=== PATIENT | male | born 1955 | race Caucasian/White ===

== ENCOUNTER 2017-08-19 17:23 | Inpatient (IN) | payer MEDICARE, MEDICAID ==
[2017-08-19 18:20] LABS: #Eosinphils 0.5 thou/uL (0.0-0.7); #Lymphocytes 3.3 thou/uL (1.20-3.40); #Monocytes 0.8 thou/uL (0.11-0.59); #Neutrophils 3.9 thou/uL (1.40-6.50); %Basophils 0.4 % (0.0-1.0); %Eosinophils 6.1 % (0.0-10.0); %Lymphocytes 38.5 % (21.0-51.0); %Monocytes 9.5 % (0.0-10.0); %Neutrophils 45.5 % (42.0-75.0); Hemoglobin 14.7 g/dL (14.0-18.0); Mean Corpuscular HGB CONC 34.3 g/dL (32.0-36.0); Mean Corpuscular Hemoglobin 32.9 pg (27.0-31.0); Mean Corpuscular Volume 95.8 fl (80.0-94.0); Mean Platelet Volume 7.3 fL (7.4-10.4); Platelet Count 285 thou/uL (130-400); RBC Distribution Width 12.5 % (11.5-14.5); Red Blood Cell (RBC) Count 4.49 mill/uL (4.70-6.10); White Blood Cell (WBC) Count 8.6 thou/uL (4.8-10.8)
[2017-08-19 18:46] LABS: ALT (SGPT) 8 U/L (8-55); AST (SGOT) 19 U/L (5-34); Albumin 4.1 g/dL (3.4-4.8); Alkaline Phosphatase 74 U/L (40-150); Anion Gap 14 mmol/L (10-20); BUN (Urea Nitrogen) 16 mg/dL (8.4-25.7); Bilirubin, Total 0.3 mg/dL (0.2-1.2); CK (CPK) 132 U/L (30-200); Calc. Creatinine Clearance 0 mL/min (70-130); Calcium 9.3 mg/dL (7.8-10.44); Carbon Dioxide 23 mmol/L (23-31); Chloride 100 mmol/L (98-107); Estimated GFR-MDRD 84; Globulin 2.9 g/dL (2.4-3.5); Glucose 91 mg/dL (80-115); Lipase 17 U/L (8-78); Magnesium 2.3 mg/dL (1.6-2.6); Potassium 4.7 mmol/L (3.5-5.1); Sodium 132 mmol/L (136-145)
[2017-08-19 18:47] LABS: CKMB 1.4 ng/mL (0-6.6); Troponin I Less than 0.010 ng/mL (< 0.028)
[2017-08-19 19:24] LABS: Bilirubin Negative (Negative); Blood, Urine Negative (Negative); Clarity CLEAR (Clear); Glucose, Urine (Dipstick) Negative (Negative); Leukocyte Negative (Negative); Nitrite Negative (Negative); Protein, Urine (Dipstick) Negative (Neg-Trace); Specific Gravity, Urine 1.012 (1.002-1.036); pH, Urine 6.5 (5.0-9.0)
--- NOTE | 2017-08-19 21:06 | RAD ---
PORTABLE CHEST: History: Cough. Comparison: 07-25-16 FINDINGS: Heart size and mediastinum are within normal limits. The lungs are clear of infiltrate. Post-operativ e changes of the cervical spine are seen. IMPRESSION: No active intrathoracic disease. POS: [facility]
[2017-08-19] MEDS ORDERED: Water For Inject, Bacteriostat 30 ML ONE (21:09)
[2017-08-19] MEDS ORDERED: Nitroglycerin 2% Ointment 1 INCH/1 GM Packet ONE (21:09)
[2017-08-19] MEDS ORDERED: methylPREDNISolone Sod Succ/PF 125 MG/2 ML VIAL ONE (21:09)
[2017-08-19] MEDS ORDERED: Azithromycin 250 MG TAB ONE (21:09)
[2017-08-19] MEDS ORDERED: Enoxaparin Sodium 80 MG/0.8 ML SYRINGE ONE (21:10)
[2017-08-19 22:00] LABS: Medtox Reader # READER 1
[2017-08-19 22:01] LABS: Amphetamine Not Detected (NotDetected); Barbiturates Screen Not Detected (NotDetected); Benzodiazepine Screen Not Detected (NotDetected); Cocaine Metabolite Screen Detected (NotDetected); Medtox Control Line Valid? VALID (VALID); Methadone Not Detected (NotDetected); Methamphetamine Not Detected (NotDetected); Opiate Screen Not Detected (NotDetected); Oxycodone Screen Not Detected (NotDetected); Phencyclidine (PCP) Not Detected (NotDetected); THC/Cannabinoid Screen Not Detected (NotDetected); Tricyclic Screen Not Detected (NotDetected)
[2017-08-19 22:09] LABS: Troponin I Less than 0.010 ng/mL (< 0.028)
[2017-08-20] MEDS: Sodium Chloride 0.9% 1,000 ML IV SCH ×3 (00:18→18:13)
[2017-08-20] MEDS: Nitroglycerin 2% Ointment 1 INCH/1 GM Packet TOP SCH ×2 (00:22→06:30)
[2017-08-20 01:00] VITALS: BMI 23.0
[2017-08-20] MEDS ORDERED: diphenhydrAMINE 50 MG CAP PO PRN (01:01)
[2017-08-20] MEDS ORDERED: Ondansetron ODT 4 MG TAB PO PRN (01:01)
[2017-08-20] MEDS ORDERED: hydrALAZINE 20 MG/ML VIAL SLOW IVP PRN (01:01)
[2017-08-20] MEDS ORDERED: Milk Of Magnesia 30 ML UDCUP PO PRN (01:01)
[2017-08-20] MEDS ORDERED: Bisacodyl 10 MG SUPP PR PRN (01:01)
[2017-08-20] MEDS ORDERED: Acetaminophen 650 MG Suppository PR PRN (01:01)
[2017-08-20] MEDS ORDERED: Acetaminophen 325 MG TAB PO PRN (01:01)
[2017-08-20] MEDS ORDERED: Famotidine 20 MG TAB PO PRN (01:01)
[2017-08-20] MEDS ORDERED: Docusate 100 MG CAP PO PRN (01:01)
[2017-08-20 01:03] LABS: Troponin I 0.011 ng/mL (< 0.028)
[2017-08-20] MEDS: Morphine 5 MG/ML SYRINGE SLOW IVP PRN ×2 (02:43→06:32)
[2017-08-20 05:54] LABS: #Lymphocytes 0.9 thou/uL (1.20-3.40); #Neutrophils 4.8 thou/uL (1.40-6.50); %Basophils 0.6 % (0.0-1.0); %Eosinophils 0.4 % (0.0-10.0); %Lymphocytes 15.6 % (21.0-51.0); %Monocytes 0.7 % (0.0-10.0); %Neutrophils 82.7 % (42.0-75.0); Hemoglobin 13.6 g/dL (14.0-18.0); Mean Corpuscular HGB CONC 34.3 g/dL (32.0-36.0); Mean Corpuscular Hemoglobin 32.9 pg (27.0-31.0); Mean Corpuscular Volume 96.1 fl (80.0-94.0); Mean Platelet Volume 7.6 fL (7.4-10.4); Platelet Count 245 thou/uL (130-400); RBC Distribution Width 12.5 % (11.5-14.5); Red Blood Cell (RBC) Count 4.13 mill/uL (4.70-6.10); White Blood Cell (WBC) Count 5.8 thou/uL (4.8-10.8)
[2017-08-20 06:03] LABS: Anion Gap 15 mmol/L (10-20); BUN (Urea Nitrogen) 17 mg/dL (8.4-25.7); Calc. Creatinine Clearance 63 mL/min (70-130); Calcium 9.3 mg/dL (7.8-10.44); Carbon Dioxide 22 mmol/L (23-31); Cardiac Risk 4.3 (Less than 4.5); Chloride 102 mmol/L (98-107); Cholesterol 224 mg/dl (< 200 Desired); Estimated GFR-MDRD 72; Glucose 159 mg/dL (80-115); HDL Cholesterol 52 mg/dL (>60 Neg Risk); LDL Cholesterol, Calculated 153 mg/dL; Potassium 4.7 mmol/L (3.5-5.1); Sodium 134 mmol/L (136-145); Triglycerides 93 mg/dL (Less than 150)
[2017-08-20] MEDS: Levothyroxine Sodium 88 MCG TAB PO SCH (06:29)
[2017-08-20] MEDS ORDERED: Non-Formulary Item 1 EACH (Budesonide-Formoterol [Symbicort 160-4.5] 2 PUFF) INH SCH (06:30)
--- NOTE | 2017-08-20 07:19 | HP-2 ---
DATE OF ADMISSION: 08/19/2017 CODE STATUS: FULL. PRIMARY CARE PHYSICIAN: In [place], [place]. RESIDENT: Dr. Mireya Celeste ATTENDING: Dr. Sundar Tang HISTORIAN: Patient. CHIEF COMPLAINT: Chest pain. HISTORY OF PRESENT ILLNESS: A 62-year-old male with past medical history of questionable CAD and a h istory of a catheterization in 10/2015 without significant stenosis found or stents placed and a hist ory of cocaine abuse in the past, presents with left and right-sided chest pain. He described it as stabbing. It occurs daily 4-5 times lasting 3-4 minutes, occurs at rest, sometimes during sleep and wakes him up. It goes away on its own. He says that it has been occurring more often over this past month than it was in the past. He endorses some shortness of breath with the chest pain and diaphor esis as well as some nausea. Denies vomiting. The pain does radiate, it has been going on for great er than 1 month. He received 324 mg aspirin in the ambulance on the way over here and some nitro. PAST MEDICAL HISTORY: 1. COPD. 2. Hypertension. 3. Hyperlipidemia. 4. Hypothyroidism. 5. Medication noncompliance. PAST SURGICAL HISTORY: 1. He was cathed in 10/2015 that did not show significant stenosis and ejection fraction of 55-60%. 2. Appendectomy. 3. Jaw surgery. 4. Right elbow surgery. 5. Neck surgery. ALLERGIES: No known drug allergies. MEDICATIONS: 1. Aspirin 81 mg daily. 2. Statin 40 mg daily. 3. Symbicort. 4. Lisinopril 2.5 daily. 5. Synthroid 88 mcg daily. 6. Norvasc 5 mg daily. FAMILY HISTORY: Noncontributory. SOCIAL HISTORY: Smokes 2-3 packs per day, has a 60-90 pack year history. Alcohol, drinks a 12 pack a day if he has the money, otherwise, last drink 16 ounces this morning. He thinks he has drank abo ut 5 quarts this week. Drugs: History of cocaine abuse. Denies current cocaine use or any drug use currently. REVIEW OF SYSTEMS: Denies fevers or chills. EYES: Denies vision changes. RESPIRATORY: Denies cough. Endorses shortness of breath. GI: He endorses nausea. Denies vomiting. Endorses diaphoresis. SKIN: Denies rash, lesions. MUSCULOSKELETAL: Denies pain. NEUROLOGIC: Denies weakness, numbness. PSYCHIATRIC: Denies anxiety, depression. PHYSICAL EXAMINATION: VITAL SIGNS: Blood pressure 166/85, pulse of 79, respiratory rate 19, T-max 98.1, pulse ox 99% on ro om air, current weight 68 kilograms. GENERAL: Alert and oriented x4, no apparent distress. Appropriately interactive. EYES: PERRLA, EOMI. ENT: Nasal mucosa within normal limits as well as oropharynx. NECK: Supple. No lymphadenopathy. CARDIOVASCULAR: Regular rate and rhythm. No murmur, rub or gallop. RESPIRATORY: Normal effort. Bilateral wheezing, decreased breath sounds bilaterally. ABDOMEN: Soft, nontender to palpation. EXTREMITIES: No clubbing, cyanosis or edema. MUSCULOSKELETAL: Structure within normal limits. NEUROLOGIC: No focal deficits. LABORATORY DATA: CBC 8.6, 14.7, 43. 285. CMP: 132, 4.7, 100, 23, 16, 0.91. GFR 84. AST, ALT, alkaline phosphatase 13, 8, 34. Calcium, total protein, albumin, 9.3, 7.4, 0.1. D-dimer negative. Magnesium 2.3. CK 132, CK-MB 1.4, troponin less than 0.01. Total bilirubin 0.3. Lipase 17. BNP 57. EKG: Normal sinus rhythm. Chest x-ray hyperextended flattened diaphragm, no focal infiltrate. ASSESSMENT AND PLAN: This is a 62-year-old male with a questionable coronary artery disease history who presents with left-sided chest pain, admitted for unstable angina. 1. Unstable angina. Chest pain is associated with shortness of breath, nausea, diaphoresis, and is left-sided and is increasing over time per day over the past couple months, it has not improved with nitro and due to his history of catheterization in 2016 and poor medication compliance over the past year, he was admitted for unstable angina to inpatient tele. He was given Lovenox in the ER. It was started b.i.d. for the next day. He had a JONELLE score of 2 and a heart score of 4. We will consult Cardiology in the morning, restart him on a high intensity statin last night. He was also started li sinopril and metoprolol in the morning. He was started on lisinopril and provided with nitro p.r.n. and morphine. I will trend his troponins and repeat a troponin, EKG if chest pain returns. We will order a UDS and TSH. 2. Chronic obstructive pulmonary disease, it is chronic. Without evidence of acute exacerbation. H gaston is wheezing on exam. He was given 125 mg of prednisone in the ER. We will restart his Symbicort and provide DuoNeb q.4 hours p.r.n. 3. Hypertension. He was started on lisinopril 5 mg p.o. daily. 4. Hyperlipidemia. We ordered a lipid panel and will continue atorvastatin 80 mg daily. 5. Alcohol abuse, ASE protocol and p.r.n. Ativan. 6. Tobacco abuse. Nicotine patch and counseled on tobacco cessation. 7. Drug abuse, UDS. 8. Hyponatremia likely due to beer potomania. We will continue to monitor. 9. Medication noncompliance. We will funeral prearrangement counselor on the importance of taking his medications. 10. Hypothyroidism. We will recheck a TSH. DISPOSITION/LENGTH OF HOSPITAL STAY: 1-2 days. Symptomatic medications will to be provided. History and physical exam and management discussed with Dr. Tang.
[2017-08-20] MEDS ORDERED: Enoxaparin Sodium 80 MG/0.8 ML SYRINGE SC SCH (09:00)
[2017-08-20] MEDS ORDERED: Aspirin 325 MG TAB PO SCH (09:00)
[2017-08-20] MEDS: Aspirin 81 mg Enteric Coated Tablet PO SCH (09:57)
[2017-08-20] MEDS: Lisinopril 2.5 MG TAB PO SCH (09:59)
[2017-08-20] MEDS ORDERED: Levothyroxine Sodium 88 MCG TAB PO SCH (10:00)
[2017-08-20] MEDS: Nicotine 21 MG PATCH TD SCH (10:09)
[2017-08-20] MEDS: Enoxaparin Sodium 60 MG/0.6 ML SYRINGE SC SCH ×2 (10:09→21:20)
--- NOTE | 2017-08-20 10:57 | CON ---
DATE OF CONSULTATION: 08/20/2017 HISTORY OF PRESENT: The patient is a 62-year-old gentleman, who presents for evaluation of chest discomfort. The patient has previously been diagnosed with coronary artery disease, and underwent a cardiac catheterization in 2004. He was apparently found to have a mild disease in the right coronary artery. Patient was advised to quit smoking. He was seen again in 2015, he underwent a repeat cardiac catheterization, which revealed no significant coronary artery disease. The patient once again was highly advised to discontinue smoking and to be compliant with his medications. The patient states several months ago, he was taken off all his cardiac medications including aspirin. He states for the past month, that he has had substernal chest pain that lasts 4-5 minutes. It occurs with and without exertion. He denies having any present chest discomfort. PAST MEDICAL HISTORY: 1. Coronary artery disease. 2. Chronic obstructive pulmonary disease. 3. Hypertension. 4. Hypothyroidism. 5. Hyperlipidemia. PAST SURGICAL HISTORY: Appendectomy, neck surgery, and elbow surgery. ALLERGIES: None. SOCIAL HISTORY: The patient continues to abuse tobacco and drink excessively. He denies having any recent use of illicit drugs. MEDICATIONS ON ADMISSION: None. FAMILY HISTORY: Positive family history of heart disease. His mother had coronary bypass graft surgery. ALLERGIES: None. REVIEW OF SYSTEMS: Ten-point system noticeable for neck discomfort. PHYSICAL EXAMINATION: GENERAL: Thin gentleman in no acute distress with a blood pressure of 124/55. NECK: Showed no jugular venous distention. LUNGS: Bilateral wheezes. HEART: Regular rate and rhythm, normal S1 and S2, no murmurs. ABDOMEN: Nondistended. EXTREMITIES: Showed trace edema. SKIN: Warm and dry. NEUROLOGIC: Nonfocal. VASCULAR: Radial pulses are 2+. LABORATORY DATA: White blood cell count 5.8, hemoglobin 13.6, hematocrit 39.7, platelets 245. Sodium 134, potassium 4.7, chloride 102, bicarbonate 15, BUN 17 , creatinine 1.0, glucose 159. His troponin was less than 0.01. TSH was 5.0. BNP was 57. EKG revealed normal sinus rhythm, normal ECG. IMPRESSION: 1. Unstable angina. 2. History of coronary artery disease. 3. Chronic obstructive pulmonary disease. 4. Tobacco abuse. 5. Hypertension. 6. Dyslipidemia. This gentleman presents with chest pain suggestive of angina. From a cardiac standpoint, he needs to be restarted on his cardiac medications. Agree with treating him with Lovenox, aspirin, and lipid lowering medication. We will add Imdur to his medical regimen. We will follow this patient with you through his hospitalization. MIGUEL
[2017-08-20] MEDS: Mometasone/Formoterol 120 PUFF INHALER INH SCH ×2 (10:59→19:16)
[2017-08-20] MEDS: Methocarbamol 500 MG TAB PO PRN ×2 (12:15→21:21)
--- NOTE | 2017-08-20 12:47 | PDOC.EVN ---
Attending Addendum - Attending Addendum I personally evaluated the patient and discussed the management with Dr. Tre Celeste. I agree with the History, Examination, Assessment and Plan documented in her H& P with any addition or exceptions noted below. Patient with history of CAD, medication noncompliance, and cocaine abuse presenting with several months of daily chest pain that lasts about 3-4 minutes , radiates to L and R chest, and associated with diaphoresis, nausea, and shortness of breath. This pain occurs at rest and with exertion. He has been off his medications for near 1 year. He had last heart cath in 2016 that was performed here. His exam is overall normal, and his labs are overall normal. Troponins negative x3. Due to his history and complaint, he is being treated for unstable angina. Cardiology has been consulted and he has been started on therapeutic lovenox. Will restart his home medications, and give Nitro/Morphine PRN for pain. There is likely a high degree of his complaint that is related to medication noncompliance, continued tobacco abuse, and cocaine abuse, though he denies current use. Continue telemetry monitoring and further recs per cardiology.
[2017-08-20] MEDS ORDERED: Atorvastatin Calcium 40 MG TAB PO SCH ×2 (21:00)
[2017-08-21] MEDS: Sodium Chloride 0.9% 1,000 ML IV SCH (05:08)
[2017-08-21] MEDS: Levothyroxine Sodium 88 MCG TAB PO SCH (05:10)
[2017-08-21 06:13] VITALS: TEMP 97.9
[2017-08-21 06:30] LABS: Anion Gap 12 mmol/L (10-20); BUN (Urea Nitrogen) 12 mg/dL (8.4-25.7); Calc. Creatinine Clearance 75 mL/min (70-130); Calcium 8.3 mg/dL (7.8-10.44); Carbon Dioxide 23 mmol/L (23-31); Chloride 105 mmol/L (98-107); Estimated GFR-MDRD 89; Glucose 85 mg/dL (80-115); Potassium 3.2 mmol/L (3.5-5.1); Sodium 137 mmol/L (136-145)
[2017-08-21] MEDS: Mometasone/Formoterol 120 PUFF INHALER INH SCH (07:05)
--- NOTE | 2017-08-21 09:13 | PDOC.FM ---
- Subjective Subjective: No significant overnight events. Patient appears to be doing fairly well this morning, although he is agitated. He just came back inside from smoking. He endorses shortness of breath associated with exertion. - Objective MAR Reviewed: Yes Vital Signs & Weight: Vital Signs (12 hours) Temp Pulse Resp BP Pulse Ox 08/21/17 07:55 95 08/21/17 05:00 97.9 F 71 20 108/65 92 L Weight Weight 60.917 kg I&O: 08/20/17 08/21/17 08/22/17 06:59 06:59 06:59 Intake Total 600 4527 Output Total 300 1565 Balance 300 2962 Result Diagrams: 08/20/17 05:37 08/21/17 04:54 EKG Reviewed by me: Yes Radiology Reviewed by me: Yes <Leticia Ca - Last Filed: 08/21/17 09:11> - Objective Vital Signs & Weight: Vital Signs (12 hours) Temp Pulse Resp BP Pulse Ox 08/21/17 09:28 68 08/21/17 09:26 97.9 F 68 16 134/65 94 L 08/21/17 07:55 95 08/21/17 05:00 97.9 F 71 20 108/65 92 L Weight Weight 60.917 kg I&O: 08/20/17 08/21/17 08/22/17 06:59 06:59 06:59 Intake Total 600 4527 Output Total 300 1565 Balance 300 2962 Result Diagrams: 08/20/17 05:37 08/21/17 04:54 <Sundar Tang - Last Filed: 08/21/17 12:18> Phys Exam - Physical Examination Constitutional: NAD HEENT: moist MMs Neck: supple Wheezing diffusely througout Cardiovascular: RRR, no significant murmur Gastrointestinal: soft, non-tender Musculoskeletal: no edema Neurological: non-focal, moves all 4 limbs Psychiatric: A&O x 3 Deviation from normal: Agitated Skin: cap refill <2 seconds <Leticia Ca - Last Filed: 08/21/17 09:11> Dx/Plan (1) Unstable angina Status: Acute (2) COPD (chronic obstructive pulmonary disease) Status: Chronic (3) Tobacco abuse Code(s): Z72.0 - TOBACCO USE Status: Chronic (4) Medical non-compliance Code(s): Z91.19 - PATIENT'S NONCOMPLIANCE W OTH MEDICAL TREATMENT AND REGIMEN Status: Chronic (5) Cocaine abuse Code(s): F14.10 - COCAINE ABUSE, UNCOMPLICATED Status: Chronic (6) HLD (hyperlipidemia) Code(s): E78.5 - HYPERLIPIDEMIA, UNSPECIFIED Status: Chronic (7) HTN (hypertension) Code(s): I10 - ESSENTIAL (PRIMARY) HYPERTENSION Status: Chronic QualifierTitle: Hypertension type: essential hypertension Qualified Code( s): I10 - Essential (primary) hypertension (8) Hypothyroid Code(s): E03.9 - HYPOTHYROIDISM, UNSPECIFIED Status: Chronic - Plan Plan: 1. Unstable angina - Trop neg x3 - EKG NSR - No events on telemetry - Cardiology consulted; appreciate recs - Recommend optimization of medications; patient has been off medications for > 1 year - Will continue ASA, high dose statin - Consider non-specific BB as patient has history of cocaine abuse - Cocaine abuse and smoking likely contributing to CP - Imdur ER added to medication regimen per cardiology COPD - Wheezing on exam - Duoneb treatments PRN - Smoking cessation counseling - Add inhalers for treatment of COPD HTN - Imdur ER added to medication regimen per cardiology HLD - Continue high dose statin Tobacco abuse - Cessation counseling Hypothyroidism - TSH 5, Free T4 nml - Continue levothyroxine 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 <Leticia Ca - Last Filed: 08/21/17 09:11> Attending Addendum - Attending Addendum I personally evaluated the patient and discussed the management with Dr. Ca. I agree with the History, Examination, Assessment and Plan documented above with any addition or exceptions noted below. Patient has been restarted on his CAD medications. His primary pain complaint today is neck pain. Continues to smoke despite counselling. Will discuss with cardiology, but if medically optimized, should be stable for discharge. No evidence of ACS and no EKG changes. <Sundar Tang - Last Filed: 08/21/17 12:18>
[2017-08-21 09:27] VITALS: BP 134/65
[2017-08-21] MEDS: Enoxaparin Sodium 60 MG/0.6 ML SYRINGE SC SCH (09:28)
[2017-08-21] MEDS: Lisinopril 2.5 MG TAB PO SCH (09:28)
[2017-08-21] MEDS: Aspirin 81 mg Enteric Coated Tablet PO SCH (09:28)
[2017-08-21] MEDS: Nicotine 21 MG PATCH TD SCH (09:29)
[2017-08-21] MEDS ORDERED: Potassium Chloride 20 MEQ TAB PO SCH (09:30)
--- NOTE | 2017-08-22 14:37 | DIS-2 ---
DATE OF ADMISSION: 08/19/2017. DATE OF DISCHARGE: 08/21/2017. RESIDENT: Leticia Ca DO ADMITTING ATTENDING: Farhana Singletary MD DISCHARGE ATTENDING: Sundar Tang MD CONSULTATION: Cardiology, Dr. Ferris. PROCEDURE: Chest x-ray showed no acute intrathoracic disease. PRIMARY DIAGNOSES: 1. Unstable angina. 2. History of coronary artery disease. 3. Chronic obstructive pulmonary disease. SECONDARY DIAGNOSES: 1. Tobacco abuse. 2. Hypertension. 3. Dyslipidemia. 4. Hypothyroidism. DISCHARGE MEDICATIONS: 1. Aspirin 81 mg oral daily. 2. Atorvastatin calcium 80 mg oral at bedtime. 3. Isosorbide mononitrate 30 mg oral daily. 4. Lisinopril 2.5 mg oral daily. 5. Dulera 200 mcg/5 mcg inhaler, 2-puff inhalation twice daily. DISCONTINUED MEDICATIONS: None. HISTORY OF PRESENT ILLNESS/HOSPITAL COURSE: This is a 62-year-old male with past medical history of questionable coronary artery disease and history of catheterization in 10/2015 without significant stenosis found or stents placed, and a history of cocaine abuse in the past that presented with left and right- sided chest pain. He described it as stabbing and occurred daily for 4-5 days lasting 3-4 minutes, occurring at rest and sometimes during sleep, whereupon it woke him up. It does go away on its own. He says it has been occurring more often over this past month than it was in the past. He endorses shortness of breath with chest pain and diaphoresis as well as some nausea. He does deny vomiting and the pain does not radiate. It has been going on for greater than a month. He received 324 mg of aspirin in the ambulance on the way over here and some nitroglycerin. The patient remained completely stable during the course of his hospital stay. He left on several occasions to go outside and smoke, where he was likely smoking 5 packs a day. Cardiology was consulted and they recommended maximal medical management as the patient has been off his medications in over a year. Aspirin as well as lipid medication was recommended. Due to the fact that the patient has a history of cocaine abuse and was positive for cocaine on UDS, it is not necessarily recommended that a cardiac specific beta waqas be started at this time. Additionally, the patient was started on isosorbide mononitrate per Cardiology to optimize medical management of his presumed coronary artery disease. After Dr. 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 Velazquez. Dr. Velazquez tried to see the patient on several occasions; however, he was always outside smoking cigarettes. It was strongly advised that the patient quit smoking to best optimize his chances of prolonging life. The patient also adamantly denied cocaine abuse despite the fact that he was positive on his UDS as previously stated. Dr. Velazquez does not think that this is an acute coronary syndrome and he had a recent catheterization in 2016, which did not show any degree of severe stenosis. Thus, he was comfortable discharging the patient with the recommendations to stop with the cocaine use and the smoking for truly symptomatic treatment of his chest pain. The patient's troponins were trended and they were all less than 0.010. His potassium did fall to 3.2 at one point and was replaced, but otherwise his electrolytes have been stable and his kidney function has been within normal limits. CBC did not reveal any acute abnormalities. Lipid panel was performed. Triglycerides were 93, cholesterol 224, LDL 153, HDL 52, and he did have a heart disease risk ratio of 4.3. TSH was performed as the patient has history of hypothyroidism and it was noted to be 5.0 with a free T4 in the normal range of 0.87. The patient remained stable throughout the course of his hospital stay as previously stated. He did not have any acute problems, intermittently complained of chest pain, though he was up and smoking very frequently during the course of his stay here. Again, it was recommended that he stop smoking to prolong his life. DISPOSITION: Stable. DISCHARGE INSTRUCTIONS: 1. Location: Home. 2. Diet: Heart healthy. 3. Activity: Cardiopulmonary limitations. 4. Followup: The patient is to follow up with [facility] within 7 days of discharge to ensure resolution/improvement in his symptoms. This was discussed with the patient and he stated that he was in understanding of the necessity for followup, particularly in regards to medication management. MIGUEL
--- NOTE | 2017-08-24 16:58 | EKG ---
Test Reason : CP Blood Pressure : / mmHG Vent. Rate : 085 BPM Atrial Rate : 085 BPM P-R Int : 136 ms QRS Dur : 078 ms QT Int : 354 ms P-R-T Axes : 061 051 064 degrees QTc Int : 421 ms Normal sinus rhythm Normal ECG Confirmed by DULCE MARIA TELLEZ ([id number]), editor index ROBERT BARFIELD ([id number]) on 08/24/2017 4:58:24 PM Referred By: DR TELLEZ Confirmed By:DULCE MARIA TELLEZ
== END 2017-08-21 16:19 | disposition home or self-care (01) | DRG 311 ==
LOC: ERS 17:23 → 2NO 23:37
PROVIDERS: ADMIT Family Medicine; ATTEND Family Medicine
DX: I20.0 Unstable angina (principal); E87.1 Hypo-osmolality and hyponatremia; E03.9 Hypothyroidism, unspecified; E78.5 Hyperlipidemia, unspecified; I10 Essential (primary) hypertension; J44.9 Chronic obstructive pulmonary disease, unspecified; Z79.82 Long term (current) use of aspirin; F17.210 Nicotine dependence, cigarettes, uncomplicated; F10.10 Alcohol abuse, uncomplicated; Z91.14 Patient's other noncompliance with medication regimen; E87.6 Hypokalemia; F14.10 Cocaine abuse, uncomplicated
CPT/HCPCS: 36415; 71045; 80048; 80053; 80061; 80306; 81003; 82553; 83690; 83735; 83880; 84439; 84443; 84484; 85025; 85379; 93005; 94640; 94760; 96372; 96374; 96375; 99406; J2270; J1650; J2930; J7620

== ENCOUNTER 2018-01-14 07:44 | Outpatient (CLI) | payer MEDICARE, MEDICAID ==
--- NOTE | 2018-01-14 09:38 | RAD ---
RIGHT INDEX FINGER 3 VIEWS: Date: 01/14/18 HISTORY: 62-year-old male with history of foreign body right index finger, distal interphalangeal joint. FINDINGS: No evidence for foreign body. Degenerative changes. No fracture or dislocation. Minimal soft tissue s welling. IMPRESSION: Minimal soft tissue swelling distal index finger without fracture or dislocation. No abnormal opaque foreign body. Degenerative changes. POS: [facility]
== END 2018-01-14 07:45 | disposition home or self-care (01) ==
LOC: RAD-FRANK 07:44
PROVIDERS: ATTEND Nurse Practitioner Family
DX: M79.5 Residual foreign body in soft tissue (principal); M18.11 Unilateral primary osteoarthritis of first carpometacarpal joint, right hand

== ENCOUNTER 2018-06-05 17:47 | Inpatient (IN) | payer MEDICARE, MEDICAID ==
[~2018-06-05 17:47] MED LIST: ISOVUE-370 76%-LOCM 1 ML ONE
[2018-06-05] MEDS ORDERED: Metoclopramide HCl 10 MG/2 ML VIAL ONE (18:42)
[2018-06-05] MEDS ORDERED: Methocarbamol 500 MG TAB PO SCH (18:45)
[2018-06-05 19:06] LABS: #Basophils 0.1 thou/uL (0.0-0.2); #Eosinphils 0.7 thou/uL (0.0-0.7); #Lymphocytes 2.1 thou/uL (1.20-3.40); #Monocytes 0.8 thou/uL (0.11-0.59); #Neutrophils 4.1 thou/uL (1.40-6.50); %Basophils 0.7 % (0.0-1.0); %Eosinophils 9.6 % (0.0-10.0); %Lymphocytes 27.3 % (21.0-51.0); %Monocytes 10.3 % (0.0-10.0); %Neutrophils 52.2 % (42.0-75.0); Mean Corpuscular HGB CONC 34.2 g/dL (32.0-36.0); Mean Corpuscular Volume 96.4 fL (78.0-98.0); Mean Platelet Volume 6.3 fL (7.4-10.4); Platelet Count 290 thou/uL (130-400); RBC Distribution Width 12.1 % (11.5-14.5); Red Blood Cell (RBC) Count 4.23 mill/uL (4.70-6.10); White Blood Cell (WBC) Count 7.8 thou/uL (4.8-10.8)
--- NOTE | 2018-06-05 19:06 | RAD ---
CHEST ONE VIEW: 06/05/18 INDICATION: Shortness of breath and cough. COMPARISON: Prior exam dated 08/19/17. FINDINGS: Chronic lung changes are stable. Heart size is within normal limits. There is ACDF involving the lowe r cervical spine. No acute osseous abnormality is evident. IMPRESSION: No acute cardiopulmonary abnormality. POS: [facility]
[2018-06-05 19:13] LABS: INR-International Normal Ratio 0.9; PTT 30.4 SEC (22.9-36.1); Prothrombin Time 12.4 SEC (12.0-14.7)
[2018-06-05 19:29] LABS: ALT (SGPT) 10 U/L (8-55); AST (SGOT) 23 U/L (5-34); Albumin 4.1 g/dL (3.4-4.8); Alkaline Phosphatase 82 U/L (40-150); Anion Gap 14 mmol/L (10-20); BUN (Urea Nitrogen) 10 mg/dL (8.4-25.7); Bilirubin, Total 0.5 mg/dL (0.2-1.2); CK (CPK) 141 U/L (30-200); CKMB 1.8 ng/mL (0-6.6); Calc. Creatinine Clearance 0 mL/min (70-130); Calcium 9.5 mg/dL (7.8-10.44); Carbon Dioxide 27 mmol/L (23-31); Chloride 83 mmol/L (98-107); Estimated GFR-MDRD 84; Globulin 2.8 g/dL (2.4-3.5); Glucose 101 mg/dL (80-115); Lipase 21 U/L (8-78); Potassium 4.1 mmol/L (3.5-5.1); Protein, Total 6.9 g/dL (5.8-8.1); Sodium 120 mmol/L (136-145); Troponin I Less than 0.010 ng/mL (< 0.028)
[2018-06-05 20:18] LABS: Bilirubin Negative (Negative); Blood, Urine Negative (Negative); Clarity CLEAR (Clear); Glucose, Urine (Dipstick) Negative (Negative); Leukocyte Trace (Negative); Nitrite Negative (Negative); Protein, Urine (Dipstick) Negative (Neg-Trace); Specific Gravity, Urine 1.012 (1.002-1.036)
[2018-06-05 20:20] LABS: Bacteria/HPF None Seen HPF (None Seen); Hyaline Casts/LPF 0-3 HYALINE CAST LPF (0-3 Hyaline); Pathc Cast-AUWi Flag 0.14 (0-2.49); RBC/HPF 0-3 HPF (0-3); Squamous Epithelial None Seen HPF (0-3); WBC/HPF None Seen HPF (0-3)
--- NOTE | 2018-06-05 20:48 | CT ---
HISTORY: Fall Saturday with head and neck pain as well as upper chest pain. Noncontrast enhanced CT images of the brain obtained. Brain and bone windows obtained. CT images of the brain demonstrate no definite evidence of calvarial fractures. No evidence of intrac ranial masses, hemorrhages, or strokes seen. Ventricles are of normal size. IMPRESSION: Normal CT brain. POS: [facility]
--- NOTE | 2018-06-05 21:16 | CT ---
CT CERVICAL SPINE: 06/05/18 HISTORY: Trauma with fall. Neck pain. Axial images are obtained with coronal and sagittal reconstructions. Comparison made to a previous CT from 11/07/09. The patient has had an interval ACDF with fusion of the C5, C6, and C7 vertebrae. Hardware is in good position. There ahs been interval development of C3-4 disc desiccation and end plate sclerotic changes which we re not present on the 2010 exam. This is compatible with C3-4 developed changes of spondylosis. No evidence of acute cervical spine fractures seen. IMPRESSION: 1. C5, C6 and C7 ACDF changes. 2. There is interval development of degenerating disc at the C3-4 level. This has developed sinc e the previous comparison CT in 2010. No other acute cervical spine abnormality seen. Some bilateral carotid bulb and proximal ICA calcification seen. POS: [facility]
--- NOTE | 2018-06-05 21:20 | CT ---
CONTRAST ENHANCED CT IMAGES OF THE CHEST AND ABDOMEN AND PELVIS: 06/05/18 HISTORY: Patient with fall five days ago with neck pain in head and upper chest. Contrast enhanced CT images of the chest, abdomen and pelvis is obtained with sagittal and coronal re constructions. CT images demonstrate no definite evidence of lung parenchymal lesions. No evidence of mediastinal or axillary lymphadenopathy seen. Coronary artery calcifications seen. No definite evidence of rib fractures seen. CT abdomen and pelvis demonstrate the liver and spleen to be unremarkable. The gallbladder and pancre as are unremarkable. Adrenal glands are unremarkable. Small bilateral renal cortical cysts seen. The small bowel is not significantly distended. The colon is not obstructed. Evaluation of the small bowel and colon is difficult without benefit of oral contrast. Descending and sigmoid colonic diverticulosis is present. No definite evidence of pelvic fracture seen. No significant evidence of lumbar or thoracic fractures seen. Degenerative changes with disc space height loss and end plate sclerotic changes seen at the T 3-4 disc space. IMPRESSION: No evidence of acute thoracic, abdominal or pelvic pathology seen. POS: [facility]
[2018-06-05 21:27] LABS: Osmolality, Urine 202 mOsm/kg (300-900)
[2018-06-05 21:42] LABS: Sodium, Urine Less than 20 mmol/L (Not Available)
--- NOTE | 2018-06-05 21:43 | PDOC.FPRHP ---
- History of Present Illness Chief Complaint: SOB History of Present Illness: This is a 62 yo male with a pmh of Hypothyroidism, HTN, HLD, COPD, CAD, CVA who presents to the ED with a cc of SOB. He states that he started having symptoms at 0400 on 06/05. He reports a sore throat, pain with deep breathing, and nausea. He also states that he has been having some chest and neck pain since Saturday when he tripped in his back yard. He reports a history of cervical spine surgery. Pt. also mentions struggling with bladder and bowel incontinence. When pressed further, pt. is unable to specifically describe his issues but reports it has been going on for a year or two. Pt. reports not taking any medications. He states he got himself off of them because he would forget and did not see the value in taking them. ED Course: Duoneb x1, reglan 10mg, robaxin 500mg, NS 1L - Allergies/Adverse Reactions Allergies Allergy/AdvReac Type Severity Reaction Status Date / Time No Known Allergies Allergy Verified 08/20/17 00:53 - Home Medications Medication Instructions Recorded Confirmed Type Aspirin [Ecotrin Low Strength] 81 mg PO DAILY #30 tab 08/21/17 Rx Atorvastatin Calcium [Lipitor] 80 mg PO HS #30 tab 08/21/17 Rx Isosorbide Mononitrate [Imdur ER] 30 mg PO DAILY #30 tab 08/21/17 Rx Lisinopril [Zestril] 2.5 mg PO DAILY #30 tab 08/21/17 Rx Mometasone/Formoterol 200/5 2 puff INH BID-RT #1 aer 08/21/17 Rx [Dulera 200 Mcg/5 Mcg Inhaler] - History PMHx: Thyroid problem, CAD, MIx2, COPD, CVA, HLD, HTN PSHx: Appendectomy, cervical spine surgery FHx: noncontributory Social: Smokes rolled cigarettes, drinks at least 4 beers a day, denies drug use - Review of Systems General: denies: fever/chills, weight/appetite/sleep changes Eyes: denies: eye pain, vision changes ENT: reports: nasal congestion, other (sore throat) Respiratory: reports: shortness of breath, exercise intolerance. denies: cough , congestion Cardiovascular: reports: chest pain. denies: palpitation, edema Gastrointestinal: reports: nausea. denies: vomiting, diarrhea, constipation Genitourinary: reports: incontinence. denies: dysuria Skin: denies: rashes, lesions Musculoskeletal: reports: pain (to neck, back, arms), tenderness, stiffness Neurological: denies: numbness, syncope, seizure, weakness Psychological: denies: anxiety, depression - Vital signs BP: 135/69 HR: 101 RR: 18 Tmax: 98.4 Pox: 96% on ra Wt: 54.43 kg - Physical Exam Constitutional: NAD, awake, alert and oriented, well developed HEENT: normocephalic and atraumatic, PERRLA, EOMI Neck: supple, trachea midline Chest: no-tender to palpation, no lesions Heart: RRR, normal S1/S2, no murmurs/rubs/gallops, pulses present Lungs: no respiratory distress, good air movement, other (Pt. does have wheezing in lung bases.) Abdomen: soft, non-tender, bowel sounds present, no masses/distention Musculoskeletal: ROM grossly normal Neurological: no focal deficit, CN II-XII intact Skin: no rash/lesions, good turgor, capillary refill <2 seconds Heme/Lymphatic: no unusual bruising or bleeding Psychiatric: normal mood and affect, good judgment and insight, intact recent and remote memory FMR H&P: Results - Labs Result Diagrams: 06/06/18 04:41 06/06/18 04:41 Lab results: WBC 7.8 thou/uL (4.8-10.8) 06/05/18 18:52 Hgb 14.0 g/dL (14.0-18.0) 06/05/18 18:52 Hct 40.8 % (42.0-52.0) L 06/05/18 18:52 MCV 96.4 fL (78.0-98.0) 06/05/18 18:52 Plt Count 290 thou/uL (130-400) 06/05/18 18:52 Neutrophils % 52.2 % (42.0-75.0) 06/05/18 18:52 Sodium 120 mmol/L (136-145) L 06/05/18 18:52 Potassium 4.1 mmol/L (3.5-5.1) 11/15/18 18:52 Chloride 83 mmol/L (98-107) L 06/05/18 18:52 Carbon Dioxide 27 mmol/L (23-31) 06/05/18 18:52 BUN 10 mg/dL (8.4-25.7) 06/05/18 18:52 Creatinine 0.91 mg/dL (0.6-1.3) 06/05/18 18:52 Glucose 101 mg/dL (80-115) 06/05/18 18:52 Lactic Acid 3.2 mmol/L (0.5-2.2) H 06/05/18 18:52 Calcium 9.5 mg/dL (7.8-10.44) 06/05/18 18:52 Total Bilirubin 0.5 mg/dL (0.2-1.2) 06/05/18 18:52 AST 23 U/L (5-34) 06/05/18 18:52 ALT 10 U/L (8-55) 06/05/18 18:52 Alkaline Phosphatase 82 U/L (40-150) 06/05/18 18:52 Creatine Kinase 141 U/L (30-200) 06/05/18 18:52 CK-MB (CK-2) 1.8 ng/mL (0-6.6) 06/05/18 18:52 Serum Total Protein 6.9 g/dL (5.8-8.1) 06/05/18 18:52 Albumin 4.1 g/dL (3.4-4.8) 06/05/18 18:52 Lipase 21 U/L (8-78) 06/05/18 18:52 Urine Ketones Negative mg/dL (Negative) 06/05/18 20:00 Urine Blood Negative (Negative) 06/05/18 20:00 Urine Nitrite Negative (Negative) 06/05/18 20:00 Ur Leukocyte Esterase Trace (Negative) H 06/05/18 20:00 Urine RBC 0-3 HPF (0-3) 06/05/18 20:00 Urine WBC None Seen HPF (0-3) 06/05/18 20:00 Ur Squamous Epith Cells None Seen HPF (0-3) 06/05/18 20:00 Urine Bacteria None Seen HPF (None Seen) 06/05/18 20:00 - Radiology Interpretation Chest x-ray Status: report reviewed by me (No acute cardiopulmonary abnormalities) CT scan - head Status: report reviewed by me (CT brain, normal CT brain. CT neck, C5, C6, C7 ACDF changes. DJD at C3-4,) CT scan - abdomen Status: report reviewed by me (No acute abdominal pathology) CT scan - pelvis Status: report reviewed by me (No acute pathology) CT scan - chest Status: report reviewed by me (No acute thoracic changes) FMR H&P: A/P - Problem List (1) Hyponatremia Current Visit: Yes Status: Acute Code(s): E87.1 - HYPO-OSMOLALITY AND HYPONATREMIA (2) Hypochloremia Current Visit: Yes Status: Acute Code(s): E87.8 - OTH DISORDERS OF ELECTROLYTE AND FLUID BALANCE, NEC (3) Alcohol abuse Current Visit: No Status: Chronic Code(s): F10.10 - ALCOHOL ABUSE, UNCOMPLICATED (4) COPD (chronic obstructive pulmonary disease) Current Visit: No Status: Chronic (5) HLD (hyperlipidemia) Current Visit: No Status: Chronic Code(s): E78.5 - HYPERLIPIDEMIA, UNSPECIFIED (6) HTN (hypertension) Current Visit: No Status: Chronic Code(s): I10 - ESSENTIAL (PRIMARY) HYPERTENSION Qualifiers: Hypertension type: essential hypertension Qualified Code(s): I10 - Essential (primary) hypertension (7) Tobacco abuse Current Visit: No Status: Chronic Code(s): Z72.0 - TOBACCO USE (8) Cocaine abuse Current Visit: No Status: Chronic Code(s): F14.10 - COCAINE ABUSE, UNCOMPLICATED - Plan This is a 62 yo male with a pmh of Hypothyroidism, HTN, HLD, COPD, CAD, CVA Hyponatremia -Admit to tele inpatient -Fluid restriction 1500ml -Dr. Tyson was consulted from ED, appreciate his recommendations -Monitor electrolytes Hypochloremia -As above Alcohol abuse -ASE protocol -Encourage cessation COPD -Not an acute exacerbation on this admission -Duonebs PRN on for wheezing and SOB CAD -Will encourage him to begin medically appropriate medications for management of his condition. -Statin, aspirin, ACEi, BB HLD -Begin statin HTN -Begin ACEi and BB Tobacco abuse -Encourage cessation, provides pharmaceutical support if desired Cocaine abuse -Encourage cessation Risky social behavior such as drug abuse and tattoos -RPR, Hep B and C, HIV Code: Full Prophylaxis: lovenox Family: none at bedside Disposition: home in 2-3 days FMR H&P: Upper Level - Pertinent history 62 yo male here for feeling sick today. Patient is poor historian and is evasive/tangential in his answers. Patient reports falling at home a few days ago and now has pain and soreness of the neck. When asked what brought him into the ER tonight, he begins talking about things seemingly unrelated. He has smoked rolled cigarettes since he was in the 2nd grade and he doesnt keep up with how many a day. Also drinks beer, 4 this morning, but is unable to describe how many he normally drinks a day. Doesnt take medications because he forgets to take them half the time anyways. Hx of MA, HTN, hypothyroid, HLD, COPD. Medical records show a cardiac cath in 2016 which was negative. - Pertinent findings GEN: NAD, AOx3 CARD: RRR, no m/g/r PULM: mild expiratory wheezing in both lung bases ABD: Right sided tenderness EXT: no cyanosis or edema 131/68 HR: 87 Sat: 98% on RA RR: 17 All imaging reviewed and negative Na: 120 - Plan Date/Time: 06/05/182142 #hyponatremia likely 2/2 beer drinkers potomaina -fluid restrict and recheck in the AM -he has a history of hyponatremia, but this is lower than normal, lowest ever was 119 #EtOH abuse -ASE protocol -plasma alcohol lab pending - #history of positive cocaine -check UDS #hypokalemia -replenish and recheck in AM #COPD -stable at this time -continue with duonebs as needed #medication noncompliance -discuss the importance of taking medications I, Ari Hudson DO, have evaluated this patient and agree with findings/plan as outlined by 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 Pertinent changes/additions are listed here. Attending Addendum - Attending Addendum Date/Time: 06/06/18 0018 I personally evaluated the patient and discussed the management with Dr. Landa on 06/05/2018 I agree with the History, Examination, Assessment and Plan documented above with any addition or exceptions noted below- 62 yo male with h/o chronic neck pain, h/o CVA x 3, HTN, HLD, COPD who presents c/o SOB and after a fall 5 days ago. Patient states that he has been a little more SOB since the cold front started. Has not been using his inhalers. Also reports a fall 5 days ago - tripped over a concrete flower bed border. Does not know how long he was on the ground but eventually was able to get up by himself. Denies any fever/chills. PMH/PSH/Meds/ All reviewed and agree with resident's documentation. T98.6 P76 BP 116/66 RR12 98%RA Exam repeated by me and agree with resident's findings. Labs: WBC=7.8, H/H= 14/40.8, Uhy=502, XI=125, K=4.1, Cl=83, CO2=27, BUN/Cr=10/0.91, XA=952, AST/ALT= 23/10, trop I<0.010, Urine Na=<20, Urine osm= 202, Ca=9.5, Cortisol=7.6 A/P: 1) Hypochloremic/hyponatremia- Patient asymptomatic. Patient with h/o hyponatremia in past, attributed to beer potamania. Will avoid free water. Encourage alcohol cessation. 2) COPD- continue duonebs, 3) S/p fall- xrays and CT scans negative.
[2018-06-05] MEDS ORDERED: traMADol HCl 50 MG TAB PO PRN (22:36)
[2018-06-05] MEDS ORDERED: Ibuprofen 800 MG TAB PO SCH ×2 (22:36→22:45)
[2018-06-05 23:14] LABS: Lactic Acid 0.9 mmol/L (0.5-2.2)
[2018-06-05 23:23] LABS: Medtox Reader # READER 1; Phencyclidine (PCP) Not Detected (NotDetected); THC/Cannabinoid Screen Not Detected (NotDetected)
[2018-06-05 23:24] LABS: Amphetamine Not Detected (NotDetected); Barbiturates Screen Not Detected (NotDetected); Benzodiazepine Screen Not Detected (NotDetected); Cocaine Metabolite Screen Detected (NotDetected); Medtox Control Line Valid? VALID (VALID); Methadone Not Detected (NotDetected); Methamphetamine Not Detected (NotDetected); Opiate Screen Not Detected (NotDetected); Oxycodone Screen Not Detected (NotDetected); Tricyclic Screen Not Detected (NotDetected)
[2018-06-06] MEDS: Acetaminophen 500 MG TAB ONE ×2 (00:45→00:46)
[2018-06-06] MEDS: Acetaminophen 500 MG TAB PO SCH ×4 (00:47→17:29)
[2018-06-06 05:28] LABS: #Eosinphils 0.8 thou/uL (0.0-0.7); #Lymphocytes 2.1 thou/uL (1.20-3.40); #Neutrophils 2.9 thou/uL (1.40-6.50); %Basophils 0.6 % (0.0-1.0); %Eosinophils 11.8 % (0.0-10.0); %Lymphocytes 30.6 % (21.0-51.0); %Monocytes 14.2 % (0.0-10.0); %Neutrophils 42.8 % (42.0-75.0); Hemoglobin 12.9 g/dL (14.0-18.0); Mean Corpuscular HGB CONC 34.3 g/dL (32.0-36.0); Mean Corpuscular Hemoglobin 33.9 pg (27.0-31.0); Mean Corpuscular Volume 98.8 fL (78.0-98.0); Mean Platelet Volume 6.6 fL (7.4-10.4); Platelet Count 263 thou/uL (130-400); RBC Distribution Width 12.1 % (11.5-14.5); White Blood Cell (WBC) Count 6.8 thou/uL (4.8-10.8)
[2018-06-06 05:34] LABS: Anion Gap 10 mmol/L (10-20); BUN (Urea Nitrogen) 11 mg/dL (8.4-25.7); Calc. Creatinine Clearance 75 mL/min (70-130); Calcium 8.9 mg/dL (7.8-10.44); Carbon Dioxide 24 mmol/L (23-31); Chloride 94 mmol/L (98-107); Estimated GFR-MDRD Greater than 90; Glucose 84 mg/dL (80-115); Potassium 4.1 mmol/L (3.5-5.1); Sodium 124 mmol/L (136-145)
[2018-06-06] MEDS: Ibuprofen 800 MG TAB PO SCH ×3 (05:48→21:38)
[2018-06-06 05:52] LABS: HBSAg Index 0.23 S/CO (0-0.99); Hep B Surf Ag Non-Reactive S/CO (NonReactive); Hep C IgG Ab Non-Reactive (NonReactive); Hep C Index 0.07 S/CO (0-0.79); Syphilis Antibody Nonreactive (Nonreactive); Syphilis Antibody Index 0.04 S/CO (<1.00 Non-Reactive)
[2018-06-06] MEDS ORDERED: Sodium Chloride 0.9% 1,000 ML IV SCH ×2 (07:00→08:45)
[2018-06-06] MEDS ORDERED: Diazepam 5 MG TAB PO PRN (07:24)
[2018-06-06] MEDS ORDERED: Thiamine HCl 200 MG/2 ML VIAL IM SCH (07:30)
[2018-06-06] MEDS ORDERED: Diazepam 5 MG TAB PO SCH (07:30)
--- NOTE | 2018-06-06 07:45 | CON ---
DATE OF CONSULTATION: 06/06/2018 SERVICE: Renal Medicine. HISTORY OF PRESENT ILLNESS: Mr. Bell is a 62-year-old white male with known multiple medical prob lems, admitted for generalized malaise. According to the patient, he has not been feeling well. He has decreased p.o. intake. He was incidentally noted to have hyponatremia. Please note, the patient has history of moderate to heavy alcohol intake. I was consulted for his hyponatremia. Serum sodium was already slightly improved from 120-124 with f ree water restriction. I reviewed his urine chemistries and he has a low urine sodium suggesting the re may be a component of hypovolemic hyponatremia. REVIEW OF SYSTEMS: No chest pain, no shortness of breath, decreased appetite, decreased energy level . No nausea, no vomiting, no diarrhea, no abdominal pain. Occasional headache, occasional joint tatum ns. No sore throat, no fever or chills, no new skin rash. CURRENT MEDICATIONS: DuoNeb q.4 hours p.r.n., Ecotrin 81 mg bedtime, Lipitor 40 mg at bedtime, Loven ox 40 mg subcu every day, Motrin 800 mg t.i.d., Zestril 2.5 mg once a day, metoprolol succinate 25 mg once a day, tramadol p.r.n. PAST MEDICAL HISTORY: 1. Degenerative joint disease. 2. Hypertension. 3. Hyperlipidemia. 4. COPD. PAST SURGICAL HISTORY: 1. The patient is status post cervical neck surgery. 2. Status post appendectomy. 3. Status post right elbow surgery. 4. He is status post colonoscopy. SOCIAL HISTORY: Patient originally from [place], currently lives in his car with his pet. He has 3 children. He is a yuen. Education: 9th grade. Smoked for 1-2 packs for the last several y ears. Alcohol, moderate intake - usually beer. No IV drug use. ALLERGIES: None. TRAUMA: None. IMMUNIZATIONS: Declining. HOSPITALIZATIONS: Please see past medical history. FAMILY HISTORY: No family history of end-stage renal disease. PHYSICAL EXAMINATION: VITAL SIGNS: Blood pressure is 130/71, heart rate 65, respiratory rate 19, temperature 97.9, pulse o x 96%. GENERAL: Patient is awake, alert, comfortable, not in overt distress. SKIN: Adequate turgor. HEENT: He has pinkish conjunctivae, anicteric sclerae. NECK: No neck mass, no carotid bruits, no JVD. CHEST: No deformities. LUNGS: Clear breath sounds, no wheezing, no crackles. HEART: Normal sinus rhythm. No murmur, no gallops or rubs. ABDOMEN: Globular, soft, nontender, no masses. EXTREMITIES: No edema, no deformities. NEUROLOGIC: Moving all extremities. No tremors, no asterixis, no ataxia. LABORATORY DATA: Of 06/06/2018, white count 6.8, hemoglobin 12.9. Sodium 124, potassium 4.1, chlori de 94, carbon dioxide 24, BUN 11, creatinine 0.81, glucose 84, calcium 8.9. Lactic acid 0.9. On , serum sodium 124. Urinalysis showed specific gravity of 1.012, benign. Urine sodium less t rivera 20, urine creatinine 45.32. IMAGING: On 06/05/2018, CT scan of the chest, abdomen, and pelvis shows no evidence of acute thoraci c, abdominal or pelvic pathology noted. On 06/05/2018, CT scan of the brain - normal findings. On 08/05/2017, chest x-ray, normal. ASSESSMENT AND PLAN: Hyponatremia - multifactorial etiology. This could be from his heavy alcohol i ntake as well as from some degree of volume depletion. His urine sodium was noted to be less than 20 . I would suggest to do the free water restriction and at the same time, start normal saline at 75-1 00 mL an hour. Please note, if the serum sodium remains unimproved, we may need to hold off the ibup rofen or NSAIDs since this could also contribute to the hyponatremia. For the moment, agree with cur rent management. Continue free water restriction.
[2018-06-06] MEDS: Aspirin 81 mg Enteric Coated Tablet PO SCH (08:24)
[2018-06-06] MEDS: Enoxaparin Sodium 40 MG/0.4 ML SYRINGE SC SCH (08:24)
[2018-06-06] MEDS: Lisinopril 2.5 MG TAB PO SCH (08:24)
[2018-06-06] MEDS: Multivitamin W/ Minerals 1 TAB PO SCH (08:24)
[2018-06-06] MEDS: Folic Acid 1 MG TAB PO SCH (08:25)
[2018-06-06] MEDS: Nicotine 14 MG PATCH TD SCH (08:28)
--- NOTE | 2018-06-06 08:41 | PDOC.FM ---
- Subjective Subjective: Pt reports feeling "bad everywhere" today. Pt was unable to give specific complaints. no fever/chills, no cp no palpitations, sob (chronic), cough - Objective Vital Signs & Weight: Vital Signs (12 hours) Temp Pulse Resp BP BP BP Pulse Ox 06/06/18 08:31 98 F 75 18 133/67 93 L 06/06/18 03:34 97.9 F 65 19 130/71 96 06/06/18 02:16 96 06/05/18 23:18 116/66 06/05/18 22:45 98 06/05/18 22:39 98.6 F 76 12 116/66 98 Weight Weight 56.245 kg I&O: 06/05/18 06/06/18 06/07/18 06:59 06:59 06:59 Intake Total 118 Balance 118 Result Diagrams: 06/06/18 04:41 06/06/18 04:41 <Jeremy Parker - Last Filed: 06/06/18 08:37> - Objective Vital Signs & Weight: Vital Signs (12 hours) Temp Pulse Resp BP Pulse Ox 06/06/18 12:00 98.1 F 72 18 154/74 H 96 06/06/18 08:31 98 F 75 18 133/67 93 L Weight Admit Weight 56.563 kg Weight 56.245 kg I&O: 06/05/18 06/06/18 06/07/18 06:59 06:59 06:59 Intake Total 118 Balance 118 Result Diagrams: 06/06/18 04:41 06/06/18 12:04 <Venecia Lowery - Last Filed: 06/06/18 16:53> Phys Exam - Physical Examination Constitutional: NAD HEENT: sclera anicteric dry lips this AM Neck: no JVD, supple expiratory wheezing in bilateral lung bases, bilateral chest rise Cardiovascular: RRR, no significant murmur Gastrointestinal: soft, non-tender Musculoskeletal: no edema, pulses present Neurological: normal sensation, moves all 4 limbs Psychiatric: normal affect, A&O x 3 Skin: no rash, normal turgor, cap refill <2 seconds <Jeremy Parker - Last Filed: 06/06/18 08:37> Dx/Plan (1) Hypochloremia Code(s): E87.8 - OTH DISORDERS OF ELECTROLYTE AND FLUID BALANCE, NEC Status: Acute (2) Hyponatremia Code(s): E87.1 - HYPO-OSMOLALITY AND HYPONATREMIA Status: Acute (3) Alcohol abuse Code(s): F10.10 - ALCOHOL ABUSE, UNCOMPLICATED Status: Chronic (4) COPD (chronic obstructive pulmonary disease) Status: Chronic (5) Chronic neck pain Code(s): M54.2 - CERVICALGIA; G89.29 - OTHER CHRONIC PAIN Status: Chronic (6) Cocaine abuse Code(s): F14.10 - COCAINE ABUSE, UNCOMPLICATED Status: Chronic (7) HLD (hyperlipidemia) Code(s): E78.5 - HYPERLIPIDEMIA, UNSPECIFIED Status: Chronic (8) HTN (hypertension) Code(s): I10 - ESSENTIAL (PRIMARY) HYPERTENSION Status: Chronic Qualifiers: Hypertension type: essential hypertension Qualified Code(s): I10 - Essential (primary) hypertension - Plan Plan: This is a 62 yo male with a pmh of Hypothyroidism, HTN, HLD, COPD, CAD, CVA Hyponatremia A- pt appears volume down, Dr. Tyson was consulted from ED, appreciate his recommendations -Fluid restriction 1500ml -NS 100ml/hr -Monitor electrolytes Hypochloremia -As above Alcohol abuse -ASE protocol -pt undecided on whether or not he want to stop drinking. He reports history of people sneaking him in beers and whiskey to the hospital in previous hospitalizations. COPD -Not an acute exacerbation on this admission -Duonebs PRN on for wheezing and SOB CAD -Will encourage him to begin medically appropriate medications for management of his condition. -Statin, aspirin, ACEi, BB HLD -continue statin HTN -continue ACEi and BB Tobacco abuse -Encourage cessation, provides pharmaceutical support if desired Cocaine abuse -Encourage cessation Risky social behavior such as drug abuse and tattoos -RPR, Hep B and C, HIV Code: Full Prophylaxis: lovenox Disposition: home in 1-3 days <Jeremy Parker - Last Filed: 06/06/18 08:37> Attending Addendum - Attending Addendum Date/Time: 06/06/18 9511 I personally evaluated the patient and discussed the management with Dr. Parkre. I agree with the History, Examination, Assessment and Plan documented above with any addition or exceptions noted below. The patient presented with hyponatremia and is a heavy drinker. He does not want to quit drinking. Will allow beer with meals to mitigate withdrawal. Pt on free water restriction and gentle IV fluids. Will trend sodium. <Venecia Lowery - Last Filed: 06/06/18 16:53>
[2018-06-06 11:27] VITALS: BMI 21.2
[2018-06-06 12:43] LABS: Anion Gap 11 mmol/L (10-20); BUN (Urea Nitrogen) 10 mg/dL (8.4-25.7); Calc. Creatinine Clearance 68 mL/min (70-130); Calcium 9.3 mg/dL (7.8-10.44); Carbon Dioxide 27 mmol/L (23-31); Chloride 95 mmol/L (98-107); Estimated GFR-MDRD 86; Glucose 70 mg/dL (80-115); Potassium 4.4 mmol/L (3.5-5.1); Sodium 129 mmol/L (136-145)
[2018-06-06] MEDS: BEER 1 CAN PO SCH ×2 (13:25→18:32)
--- NOTE | 2018-06-06 17:05 | EKG ---
Test Reason : DIFF BREATHING Blood Pressure : / mmHG Vent. Rate : 104 BPM Atrial Rate : 104 BPM P-R Int : 144 ms QRS Dur : 080 ms QT Int : 344 ms P-R-T Axes : 064 047 073 degrees QTc Int : 452 ms Poor data quality, interpretation may be adversely affected Sinus tachycardia Otherwise normal ECG Confirmed by DAVID LUNA ([id number]), communications editor AQUILES WIGGINS ([id number]) on 06/06/2018 5:04:34 PM Referred By: Confirmed By:DAVID LUNA
[2018-06-06 18:50] LABS: Anion Gap 12 mmol/L (10-20); BUN (Urea Nitrogen) 13 mg/dL (8.4-25.7); Calc. Creatinine Clearance 67 mL/min (70-130); Calcium 9.1 mg/dL (7.8-10.44); Carbon Dioxide 22 mmol/L (23-31); Chloride 100 mmol/L (98-107); Estimated GFR-MDRD 85; Glucose 94 mg/dL (80-115); Potassium 5.1 mmol/L (3.5-5.1); Sodium 129 mmol/L (136-145)
[2018-06-06] MEDS: Atorvastatin Calcium 40 MG TAB PO SCH (21:38)
[2018-06-07 00:19] LABS: Anion Gap 9 mmol/L (10-20); BUN (Urea Nitrogen) 12 mg/dL (8.4-25.7); Calc. Creatinine Clearance 67 mL/min (70-130); Calcium 8.7 mg/dL (7.8-10.44); Carbon Dioxide 25 mmol/L (23-31); Chloride 101 mmol/L (98-107); Estimated GFR-MDRD 85; Glucose 104 mg/dL (80-115); Potassium 4.7 mmol/L (3.5-5.1); Sodium 130 mmol/L (136-145)
[2018-06-07] MEDS: Acetaminophen 500 MG TAB PO SCH ×5 (01:18→22:37)
[2018-06-07] MEDS ORDERED: Diazepam 5 MG TAB PO PRN (04:00)
--- NOTE | 2018-06-07 05:59 | PDOC.FM ---
- Subjective Subjective: Complains of rhinorrhea today. No other complaints. No nausea/vomiting, diarrhea has resolved. Patient desires a beer, states he wasn't given one last night. - Objective Vital Signs & Weight: Vital Signs (12 hours) Temp Pulse Resp BP Pulse Ox 06/07/18 04:20 98.7 F 75 131/65 98 06/07/18 03:53 95 06/06/18 20:00 98 F 89 18 149/72 H 97 Weight Admit Weight 56.563 kg Weight 56.245 kg I&O: 06/05/18 06/06/18 06/07/18 06:59 06:59 06:59 Intake Total 118 1254 Output Total 880 Balance 118 374 Result Diagrams: 06/07/18 06:06 06/07/18 06:06 <Muna Leiva - Last Filed: 06/07/18 07:57> - Objective Vital Signs & Weight: Vital Signs (12 hours) Temp Pulse Resp BP BP Pulse Ox 06/07/18 08:51 71 143/74 H 06/07/18 07:15 71 18 143/74 H 06/07/18 04:20 98.7 F 75 131/65 98 06/07/18 03:53 95 Weight Admit Weight 56.563 kg Weight 54.885 kg I&O: 06/06/18 06/07/18 06/08/18 06:59 06:59 06:59 Intake Total 118 1734 Output Total 880 Balance 118 854 Result Diagrams: 06/07/18 06:06 06/07/18 06:06 <Venecia Lowery - Last Filed: 06/07/18 10:56> Phys Exam - Physical Examination Constitutional: NAD HEENT: PERRLA Neck: supple +LAD Respiratory: wheezing present Cardiovascular: RRR, no significant murmur Gastrointestinal: soft, non-tender, no distention, positive bowel sounds Musculoskeletal: no edema, pulses present Neurological: moves all 4 limbs Psychiatric: normal affect <Muna Leiva - Last Filed: 06/07/18 07:57> Dx/Plan (1) Hypochloremia Code(s): E87.8 - OTH DISORDERS OF ELECTROLYTE AND FLUID BALANCE, NEC Status: Acute (2) Hyponatremia Code(s): E87.1 - HYPO-OSMOLALITY AND HYPONATREMIA Status: Acute (3) Alcohol abuse Code(s): F10.10 - ALCOHOL ABUSE, UNCOMPLICATED Status: Chronic (4) COPD (chronic obstructive pulmonary disease) Status: Chronic (5) Chronic neck pain Code(s): M54.2 - CERVICALGIA; G89.29 - OTHER CHRONIC PAIN Status: Chronic (6) Cocaine abuse Code(s): F14.10 - COCAINE ABUSE, UNCOMPLICATED Status: Chronic (7) HLD (hyperlipidemia) Code(s): E78.5 - HYPERLIPIDEMIA, UNSPECIFIED Status: Chronic (8) HTN (hypertension) Code(s): I10 - ESSENTIAL (PRIMARY) HYPERTENSION Status: Chronic Qualifiers: Hypertension type: essential hypertension Qualified Code(s): I10 - Essential (primary) hypertension - Plan Plan: Plan: This is a 62 yo male with a pmh of Hypothyroidism, HTN, HLD, COPD, CAD, CVA Hyponatremia - pt appears volume down, Dr. Tyson was consulted from ED, appreciate his recommendations -Fluid restriction 1500ml -NS restarted at 100 ml after being stopped yesterday due to increasing Na too quickly - Na 130 this AM -Monitoring electrolytes - SR overnight Hypochloremia -resolved Alcohol abuse -ASE protocol -pt undecided on whether or not he want to stop drinking. He reports history of people sneaking him in beers and whiskey to the hospital in previous hospitalizations. COPD -Not an acute exacerbation on this admission -Duonebs PRN on for wheezing and SOB CAD -Statin, aspirin, ACEi, BB HLD -continue statin HTN -continue ACEi and BB Tobacco abuse -Encourage cessation, provides pharmaceutical support if desired Cocaine abuse -Encourage cessation Risky social behavior such as drug abuse and tattoos -RPR, Hep B and C neg -HIV pending Homeless -Consult CM Code: Full Prophylaxis: lovenox Disposition: home in 1-2 days <Muna Leiva - Last Filed: 06/07/18 07:57> Attending Addendum - Attending Addendum Date/Time: 06/07/18 9804 I personally evaluated the patient and discussed the management with Dr. Leiva. I agree with the History, Examination, Assessment and Plan documented above with any addition or exceptions noted below. The patient's sodium is improved from admission. Will repeat later today, if around 130's will likely d/c as this is his baseline. <Venecia Lowery - Last Filed: 06/07/18 10:56>
[2018-06-07] MEDS: Ibuprofen 800 MG TAB PO SCH ×3 (06:06→22:37)
[2018-06-07 06:29] LABS: #Basophils 0.1 thou/uL (0.0-0.2); #Eosinphils 1.1 thou/uL (0.0-0.7); #Lymphocytes 1.8 thou/uL (1.20-3.40); #Monocytes 0.7 thou/uL (0.11-0.59); #Neutrophils 5.4 thou/uL (1.40-6.50); %Basophils 0.9 % (0.0-1.0); %Eosinophils 11.8 % (0.0-10.0); %Lymphocytes 19.7 % (21.0-51.0); %Monocytes 7.8 % (0.0-10.0); %Neutrophils 59.8 % (42.0-75.0); Hemoglobin 12.3 g/dL (14.0-18.0); Mean Corpuscular HGB CONC 33.8 g/dL (32.0-36.0); Mean Corpuscular Hemoglobin 33.2 pg (27.0-31.0); Mean Corpuscular Volume 98.2 fL (78.0-98.0); Mean Platelet Volume 6.6 fL (7.4-10.4); Platelet Count 283 thou/uL (130-400); RBC Distribution Width 12.3 % (11.5-14.5); Red Blood Cell (RBC) Count 3.72 mill/uL (4.70-6.10)
[2018-06-07 06:36] LABS: Anion Gap 8 mmol/L (10-20); BUN (Urea Nitrogen) 9 mg/dL (8.4-25.7); Calc. Creatinine Clearance 73 mL/min (70-130); Calcium 8.6 mg/dL (7.8-10.44); Carbon Dioxide 24 mmol/L (23-31); Chloride 100 mmol/L (98-107); Estimated GFR-MDRD Greater than 90; Glucose 97 mg/dL (80-115); Potassium 4.4 mmol/L (3.5-5.1); Sodium 128 mmol/L (136-145)
[2018-06-07 06:56] LABS: HIV (1/2) Antibody/Antigen Non-Reactive (NonReactive); HIV 1/2 INDEX 0.13 S/CO (<1.00)
[2018-06-07] MEDS ORDERED: Sodium Chloride 0.9% 1,000 ML IV SCH (08:00)
[2018-06-07] MEDS: Lisinopril 2.5 MG TAB PO SCH (08:51)
[2018-06-07] MEDS: Nicotine 14 MG PATCH TD SCH (08:52)
[2018-06-07] MEDS: Aspirin 81 mg Enteric Coated Tablet PO SCH (08:52)
[2018-06-07] MEDS: Multivitamin W/ Minerals 1 TAB PO SCH (08:52)
[2018-06-07] MEDS: Folic Acid 1 MG TAB PO SCH (08:52)
[2018-06-07] MEDS: Magnesium Oxide 400 MG TAB PO SCH (08:52)
[2018-06-07] MEDS: Enoxaparin Sodium 40 MG/0.4 ML SYRINGE SC SCH (08:54)
[2018-06-07] MEDS: BEER 1 CAN PO SCH ×3 (09:30→17:48)
[2018-06-07 11:43] LABS: Anion Gap 14 mmol/L (10-20); BUN (Urea Nitrogen) 8 mg/dL (8.4-25.7); Calc. Creatinine Clearance 72 mL/min (70-130); Calcium 9.1 mg/dL (7.8-10.44); Carbon Dioxide 23 mmol/L (23-31); Chloride 96 mmol/L (98-107); Estimated GFR-MDRD Greater than 90; Glucose 84 mg/dL (80-115); Potassium 4.5 mmol/L (3.5-5.1); Sodium 128 mmol/L (136-145)
--- NOTE | 2018-06-07 12:14 | PRG ---
DATE OF SERVICE: 06/07/2018 SUBJECTIVE: Mr. Bell is 62-year-old white male, who was seen for hyponatremia. He was managed co nservatively. He was placed on a free water restriction. The issue is that he may also have a possi bility of hypovolemic hyponatremia. For that reason, he was given normal saline. His most recent se rum sodium is now noted at 128. Please note creatinine is within normal. The plan is to discontinue the normal saline and this will place the patient on free water restriction. His hyponatremia is mu ltifactorial in etiology. No other complaints. He does wheeze occasionally. OBJECTIVE: VITAL SIGNS: Blood pressure is 143/74, heart rate 71, respiratory rate 18, temperature 98.7, pulse o x 98%. GENERAL: Noted to be awake, comfortable, not in overt distress. SKIN: Adequate turgor. HEENT: Pinkish conjunctivae, anicteric sclerae. NECK: No neck mass, no carotid bruits. No JVD. LUNGS: Occasional wheezing. HEART: Normal sinus rhythm. No murmur, no gallops or rubs. ABDOMEN: Globular, soft, nontender, no masses. EXTREMITIES: No edema, no deformities. MEDICATIONS: Medications of 06/07/2008 reviewed. LABORATORY DATA: Laboratories of 06/06/2018, sodium was noted at 130 with a potassium 4.7, chloride 101, carbon dioxide 25, BUN 12, creatinine 0.9. ASSESSMENT AND PLAN: 1. Hyponatremia -- consider hypovolemic hyponatremia as well as from intake of alcohol and liberal i ntake of free water. Patient currently is on free water restriction. Counseled on alcohol intake. We will discontinue normal saline. Recheck base met today and tomorrow. 2. Wheezing -- Patient is a chronic smoker. I ordered DuoNeb to be given every 6 hours on a p.r.n. basis. Overall, agree with current management.
[2018-06-07 13:24] LABS: Anion Gap 14 mmol/L (10-20); BUN (Urea Nitrogen) 7 mg/dL (8.4-25.7); Calc. Creatinine Clearance 76 mL/min (70-130); Calcium 8.8 mg/dL (7.8-10.44); Carbon Dioxide 21 mmol/L (23-31); Chloride 96 mmol/L (98-107); Estimated GFR-MDRD Greater than 90; Glucose 81 mg/dL (80-115); Potassium 4.5 mmol/L (3.5-5.1); Sodium 126 mmol/L (136-145)
[2018-06-07] MEDS: Sodium Chloride 0.9% 1,000 ML IV SCH ×2 (14:35→22:37)
[2018-06-07 18:52] LABS: Anion Gap 12 mmol/L (10-20); BUN (Urea Nitrogen) 6 mg/dL (8.4-25.7); Calc. Creatinine Clearance 82 mL/min (70-130); Calcium 8.3 mg/dL (7.8-10.44); Carbon Dioxide 19 mmol/L (23-31); Chloride 94 mmol/L (98-107); Estimated GFR-MDRD Greater than 90; Glucose 86 mg/dL (80-115); Sodium 121 mmol/L (136-145)
[2018-06-07] MEDS ORDERED: Cyclobenzaprine 10 MG TAB PO PRN (19:09)
[2018-06-07] MEDS: Atorvastatin Calcium 40 MG TAB PO SCH (22:36)
[2018-06-08] MEDS: Nicotine 14 MG PATCH TD SCH (04:45)
[2018-06-08 05:26] LABS: #Eosinphils 0.9 thou/uL (0.0-0.7); #Monocytes 0.3 thou/uL (0.11-0.59); #Neutrophils 2.5 thou/uL (1.40-6.50); %Basophils 0.7 % (0.0-1.0); %Eosinophils 15.4 % (0.0-10.0); Hemoglobin 11.4 g/dL (14.0-18.0); Mean Corpuscular HGB CONC 33.9 g/dL (32.0-36.0); Mean Corpuscular Hemoglobin 33.2 pg (27.0-31.0); Mean Platelet Volume 6.9 fL (7.4-10.4); Platelet Count 260 thou/uL (130-400); RBC Distribution Width 12.1 % (11.5-14.5); Red Blood Cell (RBC) Count 3.44 mill/uL (4.70-6.10); White Blood Cell (WBC) Count 5.8 thou/uL (4.8-10.8)
[2018-06-08] MEDS: Acetaminophen 500 MG TAB PO SCH ×3 (05:28→17:26)
[2018-06-08] MEDS: Ibuprofen 800 MG TAB PO SCH ×3 (05:28→20:57)
[2018-06-08] MEDS: Sodium Chloride 0.9% 1,000 ML IV SCH (05:29)
[2018-06-08 05:38] LABS: Anion Gap 10 mmol/L (10-20); BUN (Urea Nitrogen) 5 mg/dL (8.4-25.7); Calc. Creatinine Clearance 82 mL/min (70-130); Calcium 8.2 mg/dL (7.8-10.44); Carbon Dioxide 22 mmol/L (23-31); Chloride 101 mmol/L (98-107); Estimated GFR-MDRD Greater than 90; Glucose 114 mg/dL (80-115); Sodium 129 mmol/L (136-145)
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
[2018-06-08] MEDS: BEER 1 CAN PO SCH ×3 (08:08→17:26)
[2018-06-08] MEDS: Lisinopril 2.5 MG TAB PO SCH (08:12)
[2018-06-08] MEDS: Aspirin 81 mg Enteric Coated Tablet PO SCH (08:15)
[2018-06-08] MEDS: Gabapentin 300 MG CAP PO SCH ×3 (08:15→20:57)
[2018-06-08] MEDS: Multivitamin W/ Minerals 1 TAB PO SCH (08:15)
[2018-06-08] MEDS: Folic Acid 1 MG TAB PO SCH (08:15)
[2018-06-08] MEDS: Magnesium Oxide 400 MG TAB PO SCH (08:15)
[2018-06-08] MEDS: Enoxaparin Sodium 40 MG/0.4 ML SYRINGE SC SCH (08:16)
--- NOTE | 2018-06-08 13:19 | PRG ---
DATE OF SERVICE: 06/08/2018 SUBJECTIVE: Mr. Bell is a 62-year-old white male who was seen for his hyponatremia. Etiology is multifactorial. He was also volume depleted and probably have copious free water intake which includ ed his alcohol. He feels tired today. His creatinine has been fluctuating yesterday from as low as 121 and it went up this morning to 129. Prior to that it was 126 and again prior to that, it was 128 . My feeling is that this is a reflection of his free water intake. My bias is to start him on sodi um chloride tablets. PHYSICAL EXAMINATION: VITAL SIGNS: Blood pressure is 137/64, heart rate 87, respiratory rate 22, temperature 98.5, pulse o ximetry 97%. GENERAL: Noted to be awake, supine, lethargic, not in distress. SKIN: Decreased turgor. HEENT: He has pinkish conjunctivae, anicteric sclerae. NECK: No neck mass, no carotid bruits, no JVD. CHEST: No deformities. LUNGS: Clear breath sounds. HEART: Normal sinus rhythm. No murmur, no gallops, no rubs. ABDOMEN: Globular, soft, nontender. EXTREMITIES: No edema. MEDICATIONS: June 08, 2018, reviewed. LABORATORY DATA: June 08, 2018, white count 5.8, hemoglobin 11.4. June 08, 2018, sodium 129, potassium 4, chloride 101, carbon dioxide 22, BUN 5, creatinine 0.73. June 07, 2018, serum sodium was 121 at 18:16. At 12:39, it was 126. At 11, it was 128. ASSESSMENT AND PLAN: Chronic hyponatremia, fluctuating serum sodium. Again, I emphasized to the patient about limiting hi s free water intake. I will start him on sodium chloride tablets at 1000 mg p.o. b.i.d. Increase as needed. Recheck base met in a.m. Okay for discharge if it is decided to discharge him. [facility] will [facility].
[2018-06-08 16:53] LABS: Anion Gap 13 mmol/L (10-20); BUN (Urea Nitrogen) 8 mg/dL (8.4-25.7); Calc. Creatinine Clearance 68 mL/min (70-130); Calcium 8.8 mg/dL (7.8-10.44); Carbon Dioxide 20 mmol/L (23-31); Chloride 98 mmol/L (98-107); Estimated GFR-MDRD 86; Glucose 245 mg/dL (80-115); Potassium 4.4 mmol/L (3.5-5.1); Sodium 127 mmol/L (136-145)
[2018-06-08] MEDS ORDERED: Mometasone/Formoterol 120 PUFF INHALER INH SCH (18:30)
[2018-06-08] MEDS: Sodium Chloride 1 GM TAB PO SCH (20:57)
[2018-06-08] MEDS: Atorvastatin Calcium 40 MG TAB PO SCH (20:57)
[2018-06-09] MEDS: Acetaminophen 500 MG TAB PO SCH ×3 (00:04→11:43)
[2018-06-09] MEDS: Mometasone/Formoterol 120 PUFF INHALER INH SCH ×2 (00:09→07:14)
[2018-06-09 05:08] LABS: #Basophils 0.1 thou/uL (0.0-0.2); #Eosinphils 0.2 thou/uL (0.0-0.7); #Lymphocytes 2.1 thou/uL (1.20-3.40); #Monocytes 0.8 thou/uL (0.11-0.59); #Neutrophils 6.3 thou/uL (1.40-6.50); %Basophils 0.8 % (0.0-1.0); %Eosinophils 2.4 % (0.0-10.0); %Lymphocytes 22.1 % (21.0-51.0); %Monocytes 7.9 % (0.0-10.0); %Neutrophils 66.8 % (42.0-75.0); Hemoglobin 11.9 g/dL (14.0-18.0); Mean Corpuscular HGB CONC 33.8 g/dL (32.0-36.0); Mean Corpuscular Hemoglobin 33.4 pg (27.0-31.0); Mean Corpuscular Volume 98.6 fL (78.0-98.0); Mean Platelet Volume 6.4 fL (7.4-10.4); Platelet Count 276 thou/uL (130-400); RBC Distribution Width 12.2 % (11.5-14.5); Red Blood Cell (RBC) Count 3.58 mill/uL (4.70-6.10); White Blood Cell (WBC) Count 9.4 thou/uL (4.8-10.8)
[2018-06-09] MEDS: Ibuprofen 800 MG TAB PO SCH (05:19)
[2018-06-09] MEDS: Nicotine 14 MG PATCH TD SCH (05:19)
[2018-06-09 05:24] LABS: Anion Gap 11 mmol/L (10-20); BUN (Urea Nitrogen) 12 mg/dL (8.4-25.7); Calc. Creatinine Clearance 74 mL/min (70-130); Calcium 8.8 mg/dL (7.8-10.44); Carbon Dioxide 23 mmol/L (23-31); Chloride 99 mmol/L (98-107); Estimated GFR-MDRD Greater than 90; Glucose 80 mg/dL (80-115); Potassium 3.8 mmol/L (3.5-5.1); Sodium 129 mmol/L (136-145)
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
[2018-06-09] MEDS ORDERED: Levothyroxine 150 MCG TAB PO SCH (06:00)
[2018-06-09] MEDS: Magnesium Oxide 400 MG TAB PO SCH (08:47)
[2018-06-09] MEDS: Folic Acid 1 MG TAB PO SCH (08:47)
[2018-06-09] MEDS: Sodium Chloride 1 GM TAB PO SCH (08:47)
[2018-06-09] MEDS: Gabapentin 300 MG CAP PO SCH (08:47)
[2018-06-09] MEDS: Aspirin 81 mg Enteric Coated Tablet PO SCH (08:47)
[2018-06-09] MEDS: Lisinopril 2.5 MG TAB PO SCH (08:47)
[2018-06-09] MEDS: Multivitamin W/ Minerals 1 TAB PO SCH (08:47)
[2018-06-09] MEDS: BEER 1 CAN PO SCH (08:48)
[2018-06-09] MEDS: Enoxaparin Sodium 40 MG/0.4 ML SYRINGE SC SCH (08:48)
[2018-06-09 13:09] VITALS: BP 169/77; TEMP 98.9
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
== END 2018-06-09 12:40 | disposition home or self-care (01) | DRG 641 ==
LOC: ERS 17:47 → 2NO 22:20
PROVIDERS: ADMIT Family Medicine; ATTEND Family Medicine
DX: E87.1 Hypo-osmolality and hyponatremia (principal); F17.200 Nicotine dependence, unspecified, uncomplicated; E87.6 Hypokalemia; F10.10 Alcohol abuse, uncomplicated; J44.9 Chronic obstructive pulmonary disease, unspecified; I25.10 Atherosclerotic heart disease of native coronary artery without angina pectoris; E78.5 Hyperlipidemia, unspecified; I10 Essential (primary) hypertension; F14.10 Cocaine abuse, uncomplicated; Z72.89 Other problems related to lifestyle; Z59.0 Homelessness; E03.9 Hypothyroidism, unspecified; M19.90 Unspecified osteoarthritis, unspecified site
CPT/HCPCS: 36415; 70450; 71045; 71260; 72125; 74177; 80048; 80053; 80306; 80307; 81003; 81015; 82533; 82550; 82553; 82570; 83605; 83690; 83930; 83935; 84145; 84300; 84484; 84550; 85025; 85610; 85730; 86780; 86803; 87086; 87340; 87389; 90471; 90686; 93005; 94640; 94664; 96365; G0008; G8978-GP-CH; G8979-GP-CH; G8980-GP-CH; J1650; J2765; J2920; J3411; J3475; J7050; J7620

== ENCOUNTER 2018-10-20 11:06 | Emergency (ER) | payer MEDICARE, MEDICAID ==
[2018-10-20] MEDS ORDERED: Ondansetron PF 4 MG/2 ML Vial ONE (11:28)
[2018-10-20 11:49] LABS: #Basophils 0.1 thou/uL (0.0-0.2); #Eosinphils 0.5 thou/uL (0.0-0.7); #Lymphocytes 1.7 thou/uL (1.20-3.40); #Monocytes 0.8 thou/uL (0.11-0.59); #Neutrophils 5.4 thou/uL (1.40-6.50); %Basophils 0.9 % (0.0-1.0); %Eosinophils 6.2 % (0.0-10.0); %Monocytes 9.3 % (0.0-10.0); %Neutrophils 63.6 % (42.0-75.0); Hemoglobin 13.9 g/dL (14.0-18.0); Mean Corpuscular HGB CONC 33.5 g/dL (32.0-36.0); Mean Corpuscular Hemoglobin 32.1 pg (27.0-31.0); Mean Platelet Volume 6.4 fL (7.4-10.4); Platelet Count 334 thou/uL (130-400); Red Blood Cell (RBC) Count 4.32 mill/uL (4.70-6.10); White Blood Cell (WBC) Count 8.5 thou/uL (4.8-10.8)
[2018-10-20] MEDS ORDERED: ISOVUE-370 76%-LOCM 1 ML ONE (12:01)
[2018-10-20 12:08] LABS: ALT (SGPT) 10 U/L (8-55); AST (SGOT) 22 U/L (5-34); Albumin 4.1 g/dL (3.4-4.8); Alkaline Phosphatase 68 U/L (40-150); Anion Gap 12 mmol/L (10-20); BUN (Urea Nitrogen) 6 mg/dL (8.4-25.7); Bilirubin, Total 0.5 mg/dL (0.2-1.2); CK (CPK) 148 U/L (30-200); Calc. Creatinine Clearance 0 mL/min (70-130); Calcium 8.6 mg/dL (7.8-10.44); Carbon Dioxide 25 mmol/L (23-31); Chloride 95 mmol/L (98-107); Estimated GFR-MDRD Greater than 90; Globulin 2.3 g/dL (2.4-3.5); Glucose 98 mg/dL (80-115); Lipase 11 U/L (8-78); Potassium 4.6 mmol/L (3.5-5.1); Protein, Total 6.4 g/dL (5.8-8.1); Sodium 127 mmol/L (136-145)
--- NOTE | 2018-10-20 12:36 | RAD ---
PORTABLE CHEST 1 VIEW: Date: 10/20/18 Time: 1159 hours HISTORY: Epigastric pain, vomiting. FINDINGS: Comparison made with exam of 06/05/18. The heart size is normal. The lungs are expanded without focal areas of consolidation, pneumothoraces , or pleural effusions. Postop changes in the cervical spine are again seen. IMPRESSION: No radiographic evidence of acute cardiopulmonary process. POS: [facility]
[2018-10-20 12:45] LABS: Bilirubin Negative (Negative); Blood, Urine Negative (Negative); Clarity CLOUDY (Clear); Glucose, Urine (Dipstick) Negative (Negative); Leukocyte Negative (Negative); Nitrite Negative (Negative); Protein, Urine (Dipstick) Negative (Neg-Trace); Specific Gravity, Urine 1.007 (1.002-1.036); pH, Urine 7.5 (5.0-9.0)
[2018-10-20] MEDS ORDERED: Lidocaine Viscous Sol 2% 15 ml UD Cup ONE (12:51)
[2018-10-20] MEDS ORDERED: Mag-Al 1200 mg/1200 mg/30 ML UDCUP ONE (12:51)
--- NOTE | 2018-10-20 14:58 | CT ---
FCT Abdomen Pelvis W Con History: [Abdominal pain] Comparison: CT May 2018 Findings: The lung bases are clear. No pericardial effusion. Moderate diverticular disease of the sigmoid colon without active current inflammation. No hydronephr osis. Multiple bilateral renal hypodensities are present. No solid enhancing mass. No free intraperitoneal gas or fluid. No acute osseous abnormality. Impression: No acute intra-abdominal abnormality. Mild dilatation of the left ureter is similar to th e comparison examination. Direct visualization may be beneficial to evaluate for a nonvisualized smal l distal obstructive process at the ureterovesicular junction. This should be performed nonemergently .
== END 2018-10-20 15:39 | disposition home or self-care (01) ==
LOC: ERS 11:06
DX: R10.13 Epigastric pain (principal); Z71.6 Tobacco abuse counseling; Z86.73 Personal history of transient ischemic attack (TIA), and cerebral infarction without residual deficits; E03.9 Hypothyroidism, unspecified; I25.10 Atherosclerotic heart disease of native coronary artery without angina pectoris; I25.2 Old myocardial infarction; E78.5 Hyperlipidemia, unspecified; I10 Essential (primary) hypertension; J44.9 Chronic obstructive pulmonary disease, unspecified; F17.210 Nicotine dependence, cigarettes, uncomplicated
CPT/HCPCS: 36415; 71045; 74177; 80053; 81003; 82550; 83690; 83880; 84484; 85025; 93005; 96361; 96374; 99406; J2405; Q9966

== ENCOUNTER 2018-11-06 21:20 | Emergency (ER) | payer MEDICARE, MEDICAID ==
[2018-11-06] MEDS ORDERED: Metoclopramide HCl 10 MG/2 ML VIAL ONE (22:14)
[2018-11-06] MEDS ORDERED: Acetaminophen 500 MG TAB ONE (22:14)
--- NOTE | 2018-11-06 23:23 | RAD ---
CERVICAL SPINE THREE VIEWS: History: Injury from a fall with neck pain. FINDINGS: Anterior cervical fusion changes at C5, C6, and C7. Spondylosis with narrowing and osteophytosis at C 3-4, and C4-5 as well as generalized facet arthrosis and some diffuse bony demineralization. C6, C7, and T1 are partially obscured on the lateral view. There is no prevertebral soft tissue swelling. Por tions of C1 are partially obscured on the AP open mouth view. Right sided mandible metal plate and sc rews. IMPRESSION: Anterior cervical fusion changes. Spondylosis with disc osteophytosis and facet arthrosis including C 3-4 and C4-5. No acute fracture or dislocation involving the visualized cervical spine. POS: [facility]
[2018-11-06] MEDS ORDERED: Ketorolac Tromethamine 30 MG/ML VIAL ONE (23:50)
[2018-11-06] MEDS ORDERED: methylPREDNISolone Sod Succ/PF 125 MG/2 ML VIAL ONE (23:50)
== END 2018-11-07 01:15 | disposition home or self-care (01) ==
LOC: ERS 21:20
DX: M54.2 Cervicalgia (principal); G89.29 Other chronic pain; R51 Headache; Z86.73 Personal history of transient ischemic attack (TIA), and cerebral infarction without residual deficits; E03.9 Hypothyroidism, unspecified; I25.2 Old myocardial infarction; I25.10 Atherosclerotic heart disease of native coronary artery without angina pectoris; E78.5 Hyperlipidemia, unspecified; I10 Essential (primary) hypertension; J44.9 Chronic obstructive pulmonary disease, unspecified; F17.210 Nicotine dependence, cigarettes, uncomplicated; W17.89XA Other fall from one level to another, initial encounter
CPT/HCPCS: 72040; 93005; 96365; 96375; J1885; J2765; J2930